=== PATIENT | female | born 1975 | race Caucasian/White ===

== ENCOUNTER 2017-03-21 06:08 | Day surgery (SDC) | payer MEDICAID ==
[~2017-03-21] VITALS: Ht 162.6 cm; Wt 112.0 kg
[~2017-03-21 06:08] MED LIST: BIRTH CONTROL
[2017-03-21] MEDS ORDERED: LACTATED RINGERS 1,000 ML IV SCH (06:44)
[2017-03-21 06:57] VITALS: BP 135/83
[2017-03-21] MEDS ORDERED: SILVER NITRATE STICK TP ONE (08:15)
[2017-03-21] MEDS ORDERED: FENTANYL PF 100 MCG/2ML ONE ×2 (08:17→09:21)
[2017-03-21] MEDS ORDERED: HYDROmorphone 1 MG/ML, 1ML IV PRN (08:30)
[2017-03-21] MEDS ORDERED: LABETALOL 5MG/ML, 20ML IV PRN (08:30)
[2017-03-21] MEDS ORDERED: OXYcodone 5 MG/5 ML ORAL.SOL UDC PO PRN (08:30)
[2017-03-21] MEDS ORDERED: hydrALAzine 20 MG/ML, 1ML IV PRN (08:30)
[2017-03-21] MEDS ORDERED: MIDAZOLAM 1 MG/ML, 2ML IV PRN (08:30)
[2017-03-21] MEDS ORDERED: PROMETHAZINE 25 MG/ML, 1ML IV PRN (08:30)
[2017-03-21] MEDS ORDERED: ONDANSETRON 2MG/ML, 2ML IVPush PRN (08:30)
[2017-03-21] MEDS ORDERED: ACETAMINOPHEN 325 MG TABLET ONE (09:21)
[2017-03-21] MEDS ORDERED: OXYcodone 5 MG/5 ML ORAL.SOL UDC ONE (09:22)
[2017-03-21] MEDS: FENTANYL PF 100 MCG/2ML IV PRN ×3 (09:25→09:51)
[2017-03-21] MEDS ORDERED: ACETAMINOPHEN 325 MG TABLET PO PRN (09:30)
[2017-03-21] MEDS ORDERED: METOCLOPRAMIDE 5 MG/ML, 2ML ONE (11:06)
[2017-03-21] MEDS ORDERED: PROPOFOL 10 MG/ML, 20ML ONE (11:06)
[2017-03-21] MEDS ORDERED: KETOROLAC 30 MG/1 ML ONE (11:06)
[2017-03-21] MEDS ORDERED: ONDANSETRON 2MG/ML, 2ML ONE (11:06)
[2017-03-21] MEDS ORDERED: DEXAMETHASONE 4 MG/ML, 1ML ONE (11:06)
== END 2017-03-21 11:30 | disposition home or self-care (01) ==
LOC: OUT 06:08
PROVIDERS: ATTEND Obstetrics & Gynecology
DX: N84.0 Polyp of corpus uteri (principal); F41.9 Anxiety disorder, unspecified; G43.909 Migraine, unspecified, not intractable, without status migrainosus; E66.01 Morbid (severe) obesity due to excess calories; Z68.41 Body mass index [BMI] 40.0-44.9, adult; Z90.721 Acquired absence of ovaries, unilateral; J45.909 Unspecified asthma, uncomplicated; Z88.2 Allergy status to sulfonamides; Z82.3 Family history of stroke; Z81.8 Family history of other mental and behavioral disorders
CPT/HCPCS: 58558; 88305; J1100; J1885; J2405; J2704; J2765; J3010